=== PATIENT | male | born 1945 | race Caucasian/White ===

== ENCOUNTER 2017-06-06 05:20 | Inpatient (IN) ==
--- OUTSIDE RECORDS SUMMARY | 2017-06-06 05:29 | External Medical Summary ---
:1945 Author Organization [facility]. Summary purpose CCDA Sent to [facility] Chief Complaint and Reason for Visit Admit Diagnosis 1 427.31 Problem list No authorized problems tracked for continuity of care are available for this visit. Encounters No authorized problems tracked for encounter diagnoses are available for this visit. Medications No medications recorded for this patient visit Allergies, adverse reactions, alerts Allergen Category Ingredient Status Reaction Severity Onset No Known Drug No Known Drug No Known Drug Active Allergy Allergy Allergy Immunizations No immunizations recorded for this patient visit Relevant diagnostic tests and/or laboratory data No authorized results are available for this patient visit History of procedures No procedures recorded for this patient visit. Functional status No functional or cognitive status observations are available for this visit. Vital signs No authorized vital signs are available for this visit. Social history No Social History or smoking status observations were recorded for this visit. ( Unknown if ever smoked.) Treatment Plan No treatment plan text is available for this visit. Hospital discharge instructions No discharge instruction text is available for this visit.
[2017-06-06 05:44] VITALS: BMI 36.3
[2017-06-06] MEDS ORDERED: ACETAMINOPHEN 500 MG TABLET PO ONE (06:00)
[2017-06-06] MEDS ORDERED: NOZIN NASAL SWAB NAS ONE ×2 (06:00→10:33)
[2017-06-06] MEDS ORDERED: METOCLOPRAMIDE 10mg/2ml INJECTION IVP ONE (06:00)
[2017-06-06] MEDS ORDERED: LIDOCAINE 1% (10mg/ml) 2mL INJ PF SDV ID ONE (06:00)
[2017-06-06] MEDS ORDERED: MELOXICAM 15 MG TABLET PO ONE (06:00)
[2017-06-06] MEDS ORDERED: FAMOTIDINE PB 20 MG/50 ML BAG IV ONE (06:00)
[2017-06-06] MEDS ORDERED: ONDANSETRON 4 MG/2 ML INJECTION IVP ONE (06:00)
[2017-06-06] MEDS ORDERED: DEXAMETHASONE 4 MG/ML INJECTION IVP ONE (06:00)
[2017-06-06] MEDS: LR 1,000 ML IV SCH ×3 (06:15→09:03)
[2017-06-06] MEDS ORDERED: VANCOMYCIN 1,000 MG INJECTION ONE (06:19)
--- NOTE | 2017-06-06 06:46 | Anesthesia Preoperative Report ---
Anesthesia Preoperative Record - Date and Time Date: 06/06/17 Preoperative Diagnosis: LT FAMILIA M16.12 primary osteoarthritis left hip Proposed Procedure: total left hip NPO Since Date: 06/06/17 NPO Since Time: 23:00 Allergies/Adverse Reactions: Allergies Allergy/AdvReac Type Severity Reaction Status Date / Time No Known Allergies Allergy Unverified 05/15/17 12:47 - Vital Signs Vital Signs: Temperature 98.3 F 06/06/17 05:44 Pulse Rate 98 06/06/17 06:04 Respiratory Rate 17 06/06/17 05:44 Blood Pressure 153/91 H 06/06/17 05:44 Pulse Oximetry 95 06/06/17 05:44 Height and Weight: Height 1.82 m Weight 120 kg Body Mass Index 36.3 - Medications Inpatient Medications: Current Medications Lactated Ringer's (Lactated Ringers) 1,000 mls @ 50 mls/hr IV .Q20H ROSALBA Last Admin: 06/06/17 06:15 Dose: 50 mls/hr Epinephrine HCl 0.25 mg/Bupivacaine HCl 30 ml/Morphine Sulfate 15 mg/Ketorolac Tromethamine 60 mg/Sodium Chloride 65.25 mls @ 0 mls/hr OPSITE INTRAOP ONE; Per Protocol PRN Reason: Protocol Stop: 06/06/17 08:01 Tranexamic Acid 1,000 mg/ (Sodium Chloride) 110 mls @ 0 mls/hr TOP INTRAOP ONE PRN Reason: As Directed Stop: 06/06/17 16:14 Sodium Chloride (Iv Flush) 10 - 80 ml IV PRN PRN PRN Reason: Flushing Home Medications: Home Medications Medication Instructions Recorded Confirmed Type Atenolol 25 mg PO DAILY #0 09/19/12 06/06/17 History Calcium Carbonate [Calcium] 600 mg PO DAILY #0 09/19/12 06/06/17 History raNITIdine HCl [Ranitidine HCl] 150 mg PO DAILY #0 09/19/12 06/06/17 History Allopurinol 100 mg PO DAILY #0 tab 05/23/15 06/06/17 History Triamterene/Hydrochlorothiazid 1 tab PO DAILY #0 tab 05/23/15 06/06/17 History [Maxzide 75 mg-50 mg Tablet] Allopurinol [Zyloprim] 300 mg PO DAILY 05/16/17 06/06/17 History Warfarin Sodium 7.5 mg PO 1800 05/16/17 06/05/17 History dilTIAZem HCl [Cartia Xt] 180 mg PO DAILY 05/16/17 06/06/17 History PredniSONE [Deltasone] 20 mg PO PRN PRN 06/06/17 06/06/17 History Is Patient on Beta Jony?: Yes Beta Jony Last Dose Date/Time: 429 - Medical History Cardiovascular: Reports: Arrhythmia (afib ) - Surgical History Cardiac Surgeries/Treatments: Reports: Cardiac Catheterization (APPROX 2006; NEGATIVE) GI Surgery/Treatments: Reports: Hernia Repair (age 7), Colonoscopy, EGD, Other ( pyloroplasty for GI bleed) Surgery/Treatment: REPORT: Prostatectomy (Open suprapubic 2005) Musculoskeletal Surgery/Tx: Reports: Knee Arthroscopy (left), Total Knee Replacement (left and right), Other (open rt knee cartilage repair) - Social History Smoking Status: Former smoker - Pertinent Findings Laboratory: CBC and BMP 06/06/17 05:59 06/06/17 05:59 BMP 06/06/17 05:59 Sodium 142 Potassium 4.0 Chloride 107 Carbon Dioxide 26 BUN 14.0 Creatinine 0.9 Glucose 114 H Calcium 9.2 EKG: A-fib - Physical Exam Respiratory Exam: Present: lungs clear, bilateral breath sounds equal Cardiovascular Exam: Present: regular rate and rhythm, no murmur - Airway Assessment Mallampati Score: II TMD: 3 Fingerbreadths Neck Extension: good Overall Assessment: no airway concerns - ASA ASA Score: 3 - Plan Anesthesia: General Inhalation Gases Regional/Trunk Block: Spinal - Discussion Discussion: Discussed risks/options/alternatives of anesthesia and questions answered. Patient consents. Nursing pain assessment noted. Attestation Statement: Prior to the delivery of any anesthetic medication, I examined the patient, developed the plan, obtained the patient's consent and discussed the risk and benefits of the procedure with the patient/guardian.
[2017-06-06] MEDS ORDERED: MIDAZOLAM 2mg/2ml INJECTION ONE ×2 (06:52→09:19)
[2017-06-06] MEDS ORDERED: FentaNYL 100 MCG/2 ML INJECTION ONE ×2 (06:52→09:33)
[2017-06-06] MEDS ORDERED: KETAMINE 500 MG/10 ML INJECTION ONE (06:52)
[2017-06-06] MEDS ORDERED: PROPOFOL 20 ML ONE (07:17)
[2017-06-06] MEDS ORDERED: CEFAZOLIN 1 G INJECTION IVP ONE (07:33)
[2017-06-06] MEDS ORDERED: SEVOFLURANE 250ml LIQUID IH ONE (07:42)
[2017-06-06] MEDS ORDERED: EPINEPHrine PF 0.25 MG, BUPIVACAINE 0.25% PF 30 ML, MORPHINE SULFATE 15 MG, KETOROLAC I... OPSITE ONE (08:00)
[2017-06-06] MEDS ORDERED: HYDROMORPHONE 2 MG/ML INJECTION IVP PRN (09:04)
[2017-06-06] MEDS ORDERED: ONDANSETRON 4 MG/2 ML INJECTION IVP PRN ×2 (09:04→10:33)
[2017-06-06] MEDS ORDERED: VANCOMYCIN 1,000 MG INJECTION IAR ONE (09:04)
--- NOTE | 2017-06-06 09:11 | Operative Note ---
- Procedure Preoperative Diagnosis: Left hip primary degenerative joint disease Postoperative Diagnosis: Same as preoperative diagnosis. Surgeon: Jennifer White MD Still Cleaner: Lobo Akins Complications: None. Anesthesia: Spinal. Estimated Blood Loss: See Anesthesia Record. Fluids: Please see Anesthesia Record. Description of Procedure: Mr. Obando and his left hip were identified and marked in the preoperative holding area. He was brought back to the operating suite and spinal anesthetic was administered. He was then placed in a lateral decubitus position with his left hip up. The left lower extremity was prepped and draped in my normal sterile fashion. Timeout was performed. The [employer] robotic arm was used to assist with the surgery. A pelvic array was placed into the iliac crest through three 1 cm incisions. A direct superior approach was utilized. An approximately 12 cm incision was made in the skin and dissection carried down to the muscle fascia which was then split in line with skin incision. A checkpoint was placed in the greater trochanter. The short external rotators were identified and tagged and detached. The piriformis was spared. A capsulotomy was performed and the hip dislocated. A femoral neck osteotomy was performed at the pre-templated level measuring down from the femoral head. The head was removed and acetabulum exposed. Labrum was removed. The acetabulum was then registered with the robot. The robotic arm was then used to ream with a 61 reamer. The robot then was again used to place a 62 Trident cup in 40 of tilt and 25 of anteversion. A liner was then placed. The proximal femur was exposed and prepared with a cookie cutter followed by reaming and broaching to a size 7. We trialed with a -2.5 head. We first used 127 neck with this increases offset too much. After thorough irrigation a final Accolade 2 size 7 stem with 132 neck was placed. Leg length and offset were checked with the robot and were good with a -5 head. A final -5 ceramic head was placed and the hip reduced. Betadine solution was used to irrigate throughout the case. It was followed by normal saline irrigation. 1 g of TXA was allowed to sit in the wound for 5 minutes and then suctioned out. Joint cocktail was injected throughout soft tissue. The capsulotomy was repaired with Ethibond. Short external rotators were also repaired with Ethibond. 1 g of vancomycin powder was placed into the wound. The muscle fascia was then repaired with #1 Vicryl. I then left my asset protection assistant to close the subcutaneous tissue with 2-0 Vicryl followed by running 4-0 Monocryl skin followed by Dermabond and a sterile dressing. The patient with any placed back into supine position and taken to recovery room in the care of anesthesia.
--- NOTE | 2017-06-06 09:55 | Anesthesia Postoperative Note ---
- Date and Time Date: 06/06/17 Time: 09:50 - Status Patient Participated in Evaluation: Patient Participated in Person Vital Signs: Temperature 98.2 F 06/06/17 09:37 Pulse Rate 97 06/06/17 09:50 Respiratory Rate 14 06/06/17 09:50 Blood Pressure 113/66 06/06/17 09:50 Pulse Oximetry 97 06/06/17 09:50 Respiratory Function: Airway Patent Cardiovascular Function: Regular Pulse EKG: A-fib Mental Status: Alert and Oriented Pain Intensity: 0 Hydration: IV Infusing Complications During Recover: None Apparent - Follow-Up Instructions Instructions: Per Surgeon
[2017-06-06] MEDS: NS 1,000 ML IV SCH (10:25)
[2017-06-06] MEDS ORDERED: NAPROXEN 220 MG TABLET PO PRN (10:33)
[2017-06-06] MEDS ORDERED: DiphenhydrAMINE 25 MG CAPSULE PO PRN (10:33)
[2017-06-06] MEDS ORDERED: DiphenhydrAMINE 50 MG/ML INJECTION IVP PRN (10:33)
[2017-06-06] MEDS ORDERED: LORazepam 1 MG TABLET PO PRN (10:33)
[2017-06-06] MEDS ORDERED: WARFARIN - PHARMACY CONSULT MC ONE (10:33)
[2017-06-06] MEDS ORDERED: Oxycodone *IR* 5 MG TABLET PO PRN (10:33)
[2017-06-06] MEDS: DOCUSATE SODIUM 100 MG CAPSULE PO SCH ×2 (11:01→22:29)
[2017-06-06] MEDS: ACETAMINOPHEN 325 MG TABLET PO SCH ×4 (11:06→21:16)
[2017-06-06] MEDS: ATENOLOL 25 MG TABLET PO SCH (11:07)
[2017-06-06] MEDS: ALLOPURINOL 300 MG TABLET PO SCH (11:17)
[2017-06-06] MEDS: ALLOPURINOL 100 MG TABLET PO SCH (11:17)
[2017-06-06] MEDS: TRIAMTERENE/HCTZ 75/50 TAB 1 TAB TABLET PO SCH (11:18)
[2017-06-06] MEDS: RANITIDINE 150 MG TABLET PO SCH (11:18)
[2017-06-06] MEDS: POLYETHYL GLYCOL 3350 17gm PACKET PO SCH (11:18)
--- NOTE | 2017-06-06 11:58 | Pharmacy Consult ---
Pharmacy Consult-Warfarin - Laboratory Information 06/06/17 05:59 INR 1.06 - Consult Information COUMADIN CONSULT (Initial): Dx: A. FIB Baseline INR = 1.06. Will give Warfarin 7.5mg today (home dose). NOTE MADE IN "DOCUMENT" IN EMR. Thank you.
[2017-06-06] MEDS ORDERED: WARFARIN 7.5 MG TABLET PO SCH (12:00)
[2017-06-06] MEDS: DEXAMETHASONE INJ 10 MG in NS 50 ML IV SCH ×2 (14:56→22:50)
[2017-06-06] MEDS: NOZIN NASAL SWAB NAS SCH ×2 (14:56→22:50)
[2017-06-06] MEDS ORDERED: DEXAMETHASONE 4 MG/ML INJECTION IVP SCH (15:00)
[2017-06-06] MEDS: CEFAZOLIN 2 G in NS 100 ML IV SCH ×2 (15:27→23:12)
[2017-06-06] MEDS ORDERED: TRANEXAMIC ACID 1,000 MG in NS 100 ML TOP ONE (16:13)
--- NOTE | 2017-06-06 20:17 | XRay Report ---
EXAM: XR pelvis w/ 1 view LT hip HISTORY: postoperative image TECHNIQUE: AP view of the pelvis was obtained along with AP and frog-leg lateral views of the left hip. ENCOUNTER: subsequent COMPARISON: CT scan of the pelvis performed 05/15/2017 FINDINGS: There is a left total hip prosthesis in place which appears to been good position showing no evidence of loosening or failure. The visualized osseous structures are normal density maintain normal anatomic alignment at the articular surfaces. No acute fractures or focal destructive lesions are evident by plain film. Early degenerative changes are noted in the SI joints and right hip joint. The pubic symphysis appears intact. Surgical clips are seen over the floor of the pelvis. IMPRESSION: 1. Left total hip arthroplasty. 2. No acute bony trauma is identified. 3. Early degenerative changes about the bony pelvis. .
[2017-06-06] MEDS ORDERED: SALINE FLUSH 10ml SYRINGE IV PRN (20:33)
[2017-06-06] MEDS ORDERED: ENOXAPARIN 40 MG/0.4 ML INJECTION SQ SCH (21:00)
[2017-06-06] MEDS ORDERED: SENNOSIDES 8.6 MG TABLET PO SCH (21:00)
[2017-06-07] MEDS: NS 1,000 ML IV SCH (01:06)
[2017-06-07] MEDS: NOZIN NASAL SWAB NAS SCH ×2 (06:35→14:22)
[2017-06-07] MEDS ORDERED: SENNOSIDES 8.6 MG TABLET PO PRN (07:13)
[2017-06-07] MEDS: ACETAMINOPHEN 325 MG TABLET PO SCH ×3 (08:36→12:21)
[2017-06-07] MEDS: ALLOPURINOL 100 MG TABLET PO SCH (08:37)
[2017-06-07] MEDS: TRIAMTERENE/HCTZ 75/50 TAB 1 TAB TABLET PO SCH (08:37)
[2017-06-07] MEDS: ATENOLOL 25 MG TABLET PO SCH (08:37)
[2017-06-07] MEDS: RANITIDINE 150 MG TABLET PO SCH (08:37)
[2017-06-07] MEDS: ALLOPURINOL 300 MG TABLET PO SCH (08:37)
[2017-06-07] MEDS: POLYETHYL GLYCOL 3350 17gm PACKET PO SCH (08:38)
[2017-06-07] MEDS: DOCUSATE SODIUM 100 MG CAPSULE PO SCH (08:38)
--- NOTE | 2017-06-07 08:58 | Pharmacy Consult ---
Pharmacy Consult-Warfarin - Laboratory Information 06/06/17 06/07/17 05:59 04:49 INR 1.06 1.17 - Consult Information Ordered warfarin 7.5mg for noon today. Thank you.
--- NOTE | 2017-06-07 09:24 | Orthopedic Progress Note ---
Date: Subjective/Severity of Illness: Abraham is feeling well, ready for PT. He has no complaints and has only taken Tylenol with one Roxicodone so far. Orthopedic Objective PO Vital signs: Temperature 98.1 F 06/07/17 07:28 Pulse Rate 105 H 06/07/17 07:23 Respiratory Rate 20 06/07/17 07:23 Blood Pressure 129/85 06/07/17 07:23 Pulse Oximetry 94 06/07/17 07:23 Height and Weight: Height 5 ft 11.5 in Weight 273 lb 13.026 oz Body Mass Index 36.3 - Constitutional General Appearance: Present: alert, orientated x3, no acute distress - Respiratory Exam Present: wheezes, non-labored - Cardiovascular Exam Present: pedal pulses intact Capillary Refill: < 2-3 Seconds - Abdominal Exam Present: tenderness - Extremities Exam Extremities: Present: pulses intact. Absent: calf tenderness - Hip Exam Hip Exam: Present: IR-limited, ER- limited. Absent: unequal leg length - Surgical Site Incision: Mepilex dressing intact, dressing intact - Integumentary Exam Present: pink, warm, dry - Lymphatic Lymphatic: Absent: lymphedema - Neurological Exam Present: intact to light touch - Psychiatric Exam Present: oriented - Labs Result Diagrams: 06/07/17 04:49 06/07/17 04:49 Abnormal lab results 06/07/17 06/07/17 Range/Units 04:49 04:49 WBC 16.7 H D (4.5-11.0) T/MM3 RBC 3.95 L (4.50-5.90) M/MM3 Hgb 11.9 L D (13.5-17.5) GM/DL Hct 36.1 L D (41-53) % Glucose 162 H (75-110) MG/DL H & H 06/06/17 06/07/17 Range/Units 05:59 04:49 Hgb 14.5 11.9 L D (13.5-17.5) GM/DL Hct 42.1 36.1 L D (41-53) % Coagulation 06/06/17 06/07/17 Range/Units 05:59 04:49 INR 1.06 1.17 (0.99-1.21) Orthopedic Assessment and Plan (1) Primary osteoarthritis of left hip Status: Acute Assessment and Plan: PT/OT for mobility Lovenox/Coumadin for DVT prevention pain and bowel management discharge later today. - Anticoagulation Therapy Anticoagulation: Coumadin therapy with Lovenox bridge x30 days Hospital Course Summary Disclaimer: The visit summary below is not to be considered part of the above Progress Note.
[2017-06-07] MEDS ORDERED: ENOXAPARIN 40 MG/0.4 ML INJECTION SQ SCH (11:45)
[2017-06-07] MEDS ORDERED: WARFARIN 7.5 MG TABLET PO SCH (12:00)
[2017-06-07 12:31] VITALS: BP 123/84; PULSE 99; RESP 18; TEMP 97.3; O2SAT 95
--- NOTE | 2017-06-07 15:49 | Discharge Summary ---
Orthopedic Discharge Info Date of admission: 06/06/17 05:20 Primary care physician: Nir Rodriguez MD Attending Physician: Nir White MD Consults: 06/06/17 05:28 Consult to Anesthesiology [CONS] Routine Consulting Provider: HANNAH Vegas Reason For Exam: Preoperative Assessment 06/06/17 10:33 Case Management Consult [CONS] Routine Reason For Exam: Discharge Planning DME-Walker [CONS] Routine Height: 5 ft 11.5 in Weight: 264 lb 8.875 oz Comment: change dressing in 2 weeks Total Joint Outpatient Therapy [CONS] Routine Comment: change dressing in 2 weeks - Discharge Diagnosis (1) Primary osteoarthritis of left hip Status: Acute - Procedures Procedures: Procedures Left FAMILIA - Laboratory Result Diagrams: 06/07/17 04:49 06/07/17 04:49 Laboratory: Abnormal lab results 06/07/17 06/07/17 Range/Units 04:49 04:49 WBC 16.7 H D (4.5-11.0) T/MM3 RBC 3.95 L (4.50-5.90) M/MM3 Hgb 11.9 L D (13.5-17.5) GM/DL Hct 36.1 L D (41-53) % Glucose 162 H (75-110) MG/DL H & H 06/06/17 06/07/17 Range/Units 05:59 04:49 Hgb 14.5 11.9 L D (13.5-17.5) GM/DL Hct 42.1 36.1 L D (41-53) % Coagulation 06/06/17 06/07/17 Range/Units 05:59 04:49 INR 1.06 1.17 (0.99-1.21) Orthopedic Discharge HPI - HPI Comments This patient was admitted for elective surgical tx of end stage degenerative joint disease that failed to respond to conservative treatment. Further details of this is found in the admission H&P. Orthopedic Hospital Course Hospital course: 06/07/17 15:47 After appropriate preoperative clearance and signing of operative consent, the patient was given IV antibiotics, according to orthopedic protocol. The patient was taken to the operating room and underwent elective joint arthroplasty. Following surgery, antibiotics were discontinued less than 24 hours according to joint protocol. Appropriate anticoagulants were initiated and SCDs added for DVT prevention. The dressing was clean, dry, and intact. Pain control was obtained via multimodal approach. Bowel motivation addressed with scheduled and PRN medications. Early mobilization was initiated through PT services. Discharge arrangements made by a collaborative effort between the patient and Case Management. Follow-up is scheduled in 2-3 weeks. Discharge instructions given by orthopedic providers and nursing staff at discharge. Discharge condition was good. Ongoing care required?: No - Leukocytosis due to surgical stress response Discharge Plan - Med Rec/Dispo Referrals/Follow Up: Nir White MD [Physician] - 07/01/17 9:45 am Alejandro Instructions: UTC Ortho Postop Instructions Additional Instructions: ADVANCED THERAPY ON 06/10/2017 AT 10:40AM AT THE [facility] LOCATION FOR OUTPATIENT PHYSICAL THERAPY EVAL. PHONE [phone] [facility] TWICE A WEEK (MONDAYS AND THURSDAYS) BEGINNING 2016 FOR INR LAB DRAW FOR FOUR WEEKS. PHONE [phone] WELDING MACHINE OPERATOR [facility] LOVENOX INJECTIONS AT [facility]. GIVE YOURSELF ONE INJECTION EACH DAY BEGINNING JUNE 08 FOR 5 DAYS OR UNTIL YOUR DOCTOR ADVISES YOU TO STOP USING THEM. THE MEDICATION WILL COST $53.18. Prescriptions: New Enoxaparin Sodium [Lovenox] 40 mg SQ Q24H #5 syringe Naproxen [Aleve] 440 mg PO BID PRN #60 tab PRN Reason: Pain Acetaminophen [Tylenol] 650 mg PO QID #100 tab Oxycodone *IR* [Roxicodone *Ir*] 5 - 15 mg PO Q3H PRN #30 tab PRN Reason: Breakthrough Pain Continue Atenolol 25 mg PO DAILY #0 Triamterene/Hydrochlorothiazid [Maxzide 75 mg-50 mg Tablet] 1 tab PO DAILY # 0 tab Warfarin Sodium 7.5 mg PO 1800 PredniSONE [Deltasone] 20 mg PO PRN PRN PRN Reason: Gout Pain raNITIdine HCl [Ranitidine HCl] 150 mg PO DAILY #0 Calcium Carbonate [Calcium] 600 mg PO DAILY #0 Allopurinol 100 mg PO DAILY #0 tab dilTIAZem HCl [Cartia Xt] 180 mg PO DAILY Allopurinol [Zyloprim] 300 mg PO DAILY - Disposition 01 Discharged Home, Self-Care
[2017-06-08] MEDS ORDERED: BISACODYL 10 MG SUPPOSITORY RECTALLY SCH (20:00)
== END 2017-06-07 16:20 | disposition home or self-care (01) | DRG 470 ==
LOC: SRG 05:20
PROVIDERS: ADMIT Orthopaedic Surgery; ATTEND Orthopaedic Surgery